=== PATIENT | male | born 2000 | race Two or more races ===

== ENCOUNTER 2022-04-28 16:02 | Emergency (ER) | payer OTHER ==
[~2022-04-28] VITALS: Ht 165.1 cm; Wt 95.4 kg
[2022-04-28] MEDS ORDERED: ETOMIDATE (2MG/ML) 20ML VIAL IV ONE (16:30)
[2022-04-28 19:01] VITALS: BP 134/81
== END 2022-04-28 19:28 | disposition home or self-care (01) ==
LOC: ER 16:04
DX: S43.004A Unspecified dislocation of right shoulder joint, initial encounter (principal); Z98.890 Other specified postprocedural states; W18.39XA Other fall on same level, initial encounter; Y93.23 Activity, snow (alpine) (downhill) skiing, snowboarding, sledding, tobogganing and snow tubing; Y92.89 Other specified places as the place of occurrence of the external cause; Y99.8 Other external cause status
CPT/HCPCS: 23650; 73030; 96374